=== PATIENT | male | born 1990 | race American Indian/Alaskan Native ===

== ENCOUNTER 2020-12-13 05:41 | Emergency (ER) | payer SELFPAY ==
[2020-12-13] MEDS ORDERED: IBUPROFEN 800 MG TAB PO ONE (06:39)
--- NOTE | 2020-12-13 07:41 | Emergency Department Report ---
ED Male HPI - General Chief complaint: Urogenital-Male Stated complaint: GROIN PAIN Time Seen by Provider: 12/13/20 06:35 Source: patient Mode of arrival: Ambulatory Limitations: No Limitations - History of Present Illness Initial comments: Patient is a 29-year-old F [place] male with no significant past medical history who is presenting with right-sided testicular pain and mild swelling. He first noticed the discomfort yesterday. Pain is worse with walking. Pain estimated 6 out of 10 in severity. Denies hematuria dysuria or penile discharge . MD Complaint: testicle pain, testicle swelling - Related Data Previous Rx's Medication Instructions Recorded Last Taken Type DOXYCYCLINE Hyclate [Vibramycin 100 mg PO Q12HR #14 capsule 12/13/20 Unknown Rx CAP] Ketorolac [Toradol] 10 mg PO Q6H PRN #15 tablet 12/13/20 Unknown Rx traMADoL [Ultram] 50 mg PO Q6HR PRN #15 tablet 12/13/20 Unknown Rx Allergies Allergy/AdvReac Type Severity Reaction Status Date / Time No Known Allergies Allergy Unverified 12/13/20 06:03 ED Review of Systems ROS: Stated complaint: GROIN PAIN Other details as noted in HPI Comment: All other systems reviewed and negative ED Past Medical Hx - Medications Home Medications: Home Medications Medication Instructions Recorded Confirmed Last Taken Type DOXYCYCLINE Hyclate [Vibramycin 100 mg PO Q12HR #14 capsule 12/13/20 Unknown Rx CAP] Ketorolac [Toradol] 10 mg PO Q6H PRN #15 tablet 12/13/20 Unknown Rx traMADoL [Ultram] 50 mg PO Q6HR PRN #15 tablet 12/13/20 Unknown Rx ED Physical Exam - General Limitations: No Limitations General appearance: alert, in no apparent distress - Head Head exam: Present: atraumatic, normocephalic - Eye Eye exam: Present: normal appearance - ENT ENT exam: Present: mucous membranes moist - Neck Neck exam: Present: normal inspection - Respiratory Respiratory exam: Present: normal lung sounds bilaterally. Absent: respiratory distress, wheezes, rales - Cardiovascular Cardiovascular Exam: Present: regular rate, normal rhythm. Absent: systolic murmur, diastolic murmur, rubs, gallop - GI/Abdominal GI/Abdominal exam: Present: soft, normal bowel sounds - Rectal Rectal exam: Present: deferred - exam: Present: testicular tenderness (right sided), scrotal swelling, circumcision. Absent: urethral discharge - Extremities Exam Extremities exam: Present: normal inspection - Back Exam Back exam: Present: normal inspection - Neurological Exam Neurological exam: Present: alert, oriented X3 - Psychiatric Psychiatric exam: Present: normal affect, normal mood - Skin Skin exam: Present: warm, dry, intact, normal color. Absent: rash ED Course Vital Signs 12/13/20 06:13 Temperature 101.0 F H Pulse Rate 89 Respiratory 18 Rate Blood Pressure 140/88 [Left] O2 Sat by Pulse 97 Oximetry ED Medical Decision Making - Radiology Data ULTRASOUND SCROTUM INDICATION / CLINICAL INFORMATION: R test pain with swelling. COMPARISON: None available. FINDINGS -- RIGHT: TESTIS: Size = 4.4 x 2.7 x 3.1 cm. - Appearance: No significant abnormality. - Cyst / Mass: None. - Color Doppler Flow: Increased EPIDIDYMIS: Enlarged and hypervascular HYDROCELE: Moderate VARICOCELE: None demonstrated. FINDINGS -- LEFT: TESTIS: Size = 3.9 x 2.5 x 2.4 cm. - Appearance: No significant abnormality. - Cyst / Mass: None. - Color Doppler Flow: No significant abnormality. EPIDIDYMIS: Left epididymal head cyst measuring up to 4 mm HYDROCELE: Small VARICOCELE: None demonstrated. ADDITIONAL FINDINGS: None. IMPRESSION: 1. Enlarged hypervascular right epididymis with increased vascularity to the right testes suggesting epididymoorchitis. 2. No intratesticular mass or torsion. 3. Bilateral, right greater than left hydroceles. Signer Name: Selvin Mancini DO Signed: 12/13/2020 8:11 AM Workstation Name: [id number] - Medical Decision Making Patient with infection to the right testicle and epididymis. Because of the patient's age is likely secondary to the gonorrhea chlamydia. Patient started on Rocephin azithromycin will be also be sent home with a prescription for doxycycline as well. Patient given urology follow-up and is stable for discharge. Critical care attestation.: If time is entered above; I have spent that time in minutes in the direct care of this critically ill patient, excluding procedure time. ED Disposition Clinical Impression: Epididymo-orchitis without abscess Disposition: HOME / SELF CARE / HOMELESS Is pt being admited?: No Does the pt Need Aspirin: No Condition: Stable Instructions: Epididymitis, Orchitis Referrals: LILY BECERRA MD [Staff Physician] - 3-5 Days Forms: STI Treatment and Prevention Time of Disposition: 08:37
--- NOTE | 2020-12-13 08:16 | Ultrasound Report ---
ULTRASOUND SCROTUM INDICATION / CLINICAL INFORMATION: R test pain with swelling. COMPARISON: None available. FINDINGS -- RIGHT: TESTIS: Size = 4.4 x 2.7 x 3.1 cm. - Appearance: No significant abnormality. - Cyst / Mass: None. - Color Doppler Flow: Increased EPIDIDYMIS: Enlarged and hypervascular HYDROCELE: Moderate VARICOCELE: None demonstrated. FINDINGS -- LEFT: TESTIS: Size = 3.9 x 2.5 x 2.4 cm. - Appearance: No significant abnormality. - Cyst / Mass: None. - Color Doppler Flow: No significant abnormality. EPIDIDYMIS: Left epididymal head cyst measuring up to 4 mm HYDROCELE: Small VARICOCELE: None demonstrated. ADDITIONAL FINDINGS: None. IMPRESSION: 1. Enlarged hypervascular right epididymis with increased vascularity to the right testes suggesting epididymoorchitis. 2. No intratesticular mass or torsion. 3. Bilateral, right greater than left hydroceles. Signer Name: Selvin Mancini DO Signed: 12/13/2020 8:11 AM Workstation Name: [id number]
[2020-12-13] MEDS ORDERED: AZITHROMYCIN 250 MG TAB PO ONE (08:32)
[2020-12-13] MEDS ORDERED: LIDOCAINE-MPF (1%) 10 MG/1 ML VIAL 5 ML INFILTRATI ONE (08:32)
[2020-12-13 09:30] VITALS: BP 140/78
== END 2020-12-13 09:47 | disposition home or self-care (01) ==
LOC: ED 05:41
DX: N45.3 Epididymo-orchitis (principal); Z79.899 Other long term (current) drug therapy
CPT/HCPCS: 93975; 96372; 99283; J0696